=== PATIENT | male | born 1965 | race Two or more races ===

== ENCOUNTER 2021-07-03 09:05 | Emergency (ER) | payer OTHER ==
[~2021-07-03] VITALS: Ht 170.2 cm; Wt 66.0 kg
[2021-07-03] MEDS ORDERED: ONDANSETRON 4MG ODT PO ONE (14:15)
[2021-07-03] MEDS ORDERED: HYDROCODONE/ACETAMINOPHEN 5/325MG TABLET PO ONE (14:15)
[2021-07-03] MEDS ORDERED: TRAM50TA3 MT (14:24)
[2021-07-03] MEDS ORDERED: TRAM50TA MT (14:24)
[2021-07-03] MEDS ORDERED: IBUP-2029 MT (14:24)
[2021-07-03 14:33] VITALS: BP 144/84
== END 2021-07-03 14:45 | disposition home or self-care (01) ==
LOC: ER 09:05
DX: S22.32XA Fracture of one rib, left side, initial encounter for closed fracture (principal); S27.9XXA Injury of unspecified intrathoracic organ, initial encounter; R51.9 Headache, unspecified; E11.9 Type 2 diabetes mellitus without complications; Z98.890 Other specified postprocedural states; W18.30XA Fall on same level, unspecified, initial encounter; Y93.89 Activity, other specified; Y92.89 Other specified places as the place of occurrence of the external cause; Y99.8 Other external cause status
CPT/HCPCS: 70450; 71250; 72125; 99284; Q0162